=== PATIENT | male | born 1975 | race Caucasian/White ===

== ENCOUNTER 2017-07-16 09:07 | Emergency (ER) | payer SELFPAY ==
--- NOTE | 2017-07-16 09:39 | C.PDOC ---
History Of Present Illness 42 y/o M c no PMHx p/w heroin overdose. Patient states he was taking heroin and apparently took too much. He states he went to a store to buy cigarettes and then he remembers being awakened in an ambulance. EMS administered narcan. Patient currently denies pain, dyspnea, or any other somatic complaints. He denies any suicidal intent and states it was an accident. Denies other ingestions. Time Seen by Provider: 07/16/17 09:27 Chief Complaint (Nursing): Substance Abuse Past Medical History Vital Signs: Last Vital Signs Temp 98.2 F 07/16/17 12:04 Pulse 88 07/16/17 12:04 Resp 18 07/16/17 12:04 BP 133/77 07/16/17 12:04 Pulse Ox 98 07/16/17 12:04 - Medical History PMH: Anxiety, Arthritis (Tendinitis left thigh), Depression - [facility] Procedures OTHER GROUP THERAPY (08/07/13) Family History: States: No Known Family Hx - Social History Hx Tobacco Use: Yes Hx Alcohol Use: Yes Hx Substance Use: Yes - Immunization History Hx Tetanus Toxoid Vaccination: Yes Hx Influenza Vaccination: Yes Hx Pneumococcal Vaccination: Yes Review Of Systems Except As Marked, All Systems Reviewed And Found Negative. Constitutional: Negative for: Fever Cardiovascular: Negative for: Chest Pain Respiratory: Negative for: Shortness of Breath Physical Exam - Physical Exam Additional Physical Exam Comments: Constitutional: No acute distress. Head: Normocephalic. Atraumatic. Eyes: Constricted pupils. ENT: Moist mucous membranes. Neck: Supple. Cardiovascular: Regular rate. Radial pulses 2+ bilaterally. Chest: No tenderness. Respiratory: Clear to auscultation bilaterally. Breathing spontaneously. GI: Soft. Nontender. Nondistended. Back: No CVA tenderness. Musculoskeletal: No tenderness or swelling of extremities. Skin: No rash. Neurologic: Awake, alert, oriented x3, no focal deficit. ED Course And Treatment O2 Sat by Pulse Oximetry: 96 Medical Decision Making Medical Decision Making: Will observe for several hours after narcan administration, at this time, patient appears awake, alert, comfortable, and with no respiratory depression. Patient observed for 3 hours, no respiratory depression, feels well. Will dischage home, counseled on illicit drug use. Disposition - Disposition Disposition: HOME/ ROUTINE Disposition Time: 12:05 Condition: STABLE Instructions: Narcotic Abuse (ED) Forms: [facility] (Nauruan) - Clinical Impression Clinical Impression: Accidental heroin overdose - Scribe Statement The provider has reviewed the documentation as recorded by the Scribe More Hernandez All medical record entries made by the Scribe were at my direction and personally dictated by me. I have reviewed the chart and agree that the record accurately reflects my personal performance of the history, physical exam, medical decision making, and the department course for this patient. I have also personally directed, reviewed, and agree with the discharge instructions and disposition.
[2017-07-16 12:05] VITALS: BP 133/77; PULSE 88; RESP 18; TEMP 98.2
[2017-07-16 12:09] VITALS: O2SAT 96
== END 2017-07-16 12:10 | disposition home or self-care (01) ==
LOC: C.ER 09:07
DX: T40.1X1A Poisoning by heroin, accidental (unintentional), initial encounter (principal); F11.10 Opioid abuse, uncomplicated; Y92.009 Unspecified place in unspecified non-institutional (private) residence as the place of occurrence of the external cause